=== PATIENT | female | born 1980 | race African-American/Black ===

== ENCOUNTER 2021-07-27 14:34 | Emergency (ER) | payer SELFPAY ==
[~2021-07-27] VITALS: Ht 170.2 cm; Wt 95.3 kg
[2021-07-27 15:32] VITALS: BP 120/77
[2021-07-27] MEDS ORDERED: IBUPROFEN 800 MG TAB PO ONE (16:00)
[2021-07-27] MEDS ORDERED: IBUP800T27 PO (16:52)
[2021-07-27] MEDS ORDERED: BACL10TA PO (16:52)
== END 2021-07-27 17:00 | disposition home or self-care (01) ==
LOC: EDBD 14:34 → ER 14:34
DX: S29.011A Strain of muscle and tendon of front wall of thorax, initial encounter (principal); S73.102A Unspecified sprain of left hip, initial encounter; S60.222A Contusion of left hand, initial encounter; V43.52XA Car driver injured in collision with other type car in traffic accident, initial encounter; Y93.89 Activity, other specified; Y92.410 Unspecified street and highway as the place of occurrence of the external cause; Y99.8 Other external cause status
CPT/HCPCS: 71101; 73130; 73502; 93005